=== PATIENT | female | born 1995 | race Caucasian/White ===

== ENCOUNTER 2019-06-17 23:05 | Emergency (ER) | payer OTHER ==
[~2019-06-17] VITALS: Ht 167 cm; Wt 58.0 kg
[2019-06-17 23:10] VITALS: BP 130/74; TEMP 98.3
[2019-06-17 23:34] LABS: COLLECTION METHOD CLEAN CATCH
[2019-06-17 23:40] LABS: PH 6 (5-8); SQUAMOUS EPITHELIAL 0-2 /hpf; URINE APPEARANCE Clear; URINE BACTERIA None Seen /hpf; URINE BILIRUBIN Negative (NEGATIVE); URINE BLOOD Negative (NEGATIVE); URINE COLOR Straw; URINE GLUCOSE Negative (NEGATIVE); URINE KETONE Negative (NEGATIVE); URINE LEUKOCYTE ESTERASE Negative (NEGATIVE); URINE NITRATE Negative (NEGATIVE); URINE PROTEIN(semi-quant) Negative (NEGATIVE); URINE RBC 0-2 /hpf; URINE UROBILINOGEN Negative (NEGATIVE)
[2019-06-18 00:26] VITALS: PULSE 84
== END 2019-06-18 00:26 | disposition home or self-care (01) ==
LOC: COL.ER 23:05
PROVIDERS: Physician Assistant
DX: R11.0 Nausea (principal); R10.30 Lower abdominal pain, unspecified